=== PATIENT | female | born 1990 | race Caucasian/White ===

== ENCOUNTER 2016-02-10 10:04 | Observation (INO) | payer OTHER ==
--- NOTE | 2016-03-01 12:30 | GPROG ---
[f rep st] PROGRESS NOTE ADMISSION ORDER: I am no longer able to put it into the orders, so I am trying to just say that it w as okay for her to be admitted for an NST, and I believe it was 02/10/2016. /[id number]/MODL
== END 2016-02-10 11:00 | disposition home or self-care (01) ==
LOC: FLD 10:04
PROVIDERS: ADMIT Advanced Practice Midwife; ATTEND Advanced Practice Midwife
DX: O30.009 Twin pregnancy, unspecified number of placenta and unspecified number of amniotic sacs, unspecified trimester (principal); Z3A.00 Weeks of gestation of pregnancy not specified

== ENCOUNTER 2016-02-13 10:05 | Observation (INO) | payer OTHER | END 2016-02-13 11:58 | disposition home or self-care (01) | LOC: FLD 10:05 | PROVIDERS: ADMIT Obstetrics & Gynecology; ATTEND Obstetrics & Gynecology | DX: O30.003 Twin pregnancy, unspecified number of placenta and unspecified number of amniotic sacs, third trimester (principal); Z3A.00 Weeks of gestation of pregnancy not specified ==

== ENCOUNTER 2016-02-14 15:10 | Observation (INO) | payer OTHER ==
--- NOTE | 2016-02-14 15:24 | OBPROG ---
OBG Progress Note Assessment/Plan: Assessment: cat 1 fhr denies leaking bleeding and cramping reactive reassuring NST for A and B babies Plan:Discussed reasons to return before scheduled keep next appt at the office biweekly nsts 02/14/16 15:22 Subjective: Came in with complaint of frequent x 4 episodes of hiccups with baby B in a day. Fequent huber siddiqui contractions. Request for exam. No contractions on monitor. Deferred exam. FHR (bpm): 140 (135) ICD10 Worksheet Patient Problems: Problems Problem Status Diagnosed nst frequent hiccups Acute
== END 2016-02-14 15:30 | disposition home or self-care (01) ==
LOC: FLD 15:10
PROVIDERS: ADMIT Advanced Practice Midwife; ATTEND Advanced Practice Midwife
DX: O30.009 Twin pregnancy, unspecified number of placenta and unspecified number of amniotic sacs, unspecified trimester (principal); Z3A.00 Weeks of gestation of pregnancy not specified

== ENCOUNTER 2016-02-16 13:00 | Observation (INO) | payer OTHER ==
--- NOTE | 2016-02-16 20:30 | OBPROG ---
OBG Progress Note Assessment/Plan: Assessment: cat1 fhr reactive reassuring nst for twins Plan:discharge to home will return for c/s tuesday02/16/16 20:28 Subjective: Patient here for NST for twins Current Contraction Pattern: Irregular FHR Pattern Variability: Moderate FHR Category: 1 Membranes: Intact ICD10 Worksheet Patient Problems: Problems Problem Status Diagnosed twin nst Acute
== END 2016-02-16 14:10 | disposition home or self-care (01) ==
LOC: FLD 13:00
PROVIDERS: ADMIT Advanced Practice Midwife; ATTEND Advanced Practice Midwife
DX: O30.009 Twin pregnancy, unspecified number of placenta and unspecified number of amniotic sacs, unspecified trimester (principal); Z3A.00 Weeks of gestation of pregnancy not specified

== ENCOUNTER 2016-02-18 05:30 | Inpatient (IN) | payer OTHER ==
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
[2016-02-18] MEDS ORDERED: CITRIC ACID/SODIUM CITRATE 30 ML UDCUP PO ONE (06:12)
[2016-02-18] MEDS ORDERED: ceFAZolin 2 GM/DEXTROSE 100 ML IV ONE (06:12)
[2016-02-18] MEDS ORDERED: LR 500 ML IV ONE (06:12)
[2016-02-18] MEDS ORDERED: LR 1,000 ML IV SCH (06:30)
[2016-02-18 06:42] LABS: % IMMATURE GRANULYOCYTES 0.9 % (0.0-1.1); ABSOLUTE IMMATURE GRANULOCYTES 0.09 10^3/uL (0.00-0.10); ADD DIFF? NO; ADD MORPH? NO; ADD SCAN? NO; ATYPICAL LYMPHOCYTE FLAG 10 (0-99); FRAGMENT RBC FLAG 0 (0-99); HEMATOCRIT 34.6 % (38.0-47.0); HEMOGLOBIN 11.9 g/dL (12.6-16.3); LEFT SHIFT FLG 0 (0-99); LIPEMIA HEMOLYSIS FLAG 90 (0-99); MEAN CELL HEMOGLOBIN 30.7 pg (27.9-34.1); MEAN CELL HEMOGLOBIN CONCENTR. 34.4 g/dL (32.4-36.7); MEAN CELL VOLUME 89.2 fL (81.5-99.8); MEAN PLATELET VOLUME 10.8 fL (8.7-11.7); PLATELET CLUMPS FLAG 10 (0-99); PLATELET COUNT 175 10^3/uL (150-400); RED BLOOD CELL COUNT 3.88 10^6/uL (4.18-5.33); RED CELL DISTRIBUTION WIDTH 15.5 % (11.5-15.2)
[2016-02-18] MEDS ORDERED: AMMONIA AROMATIC 1 EACH AMP IH ONE (07:19)
[2016-02-18] MEDS ORDERED: TERBUTALINE SULFATE 1 MG/ML VIAL ONE (07:19)
[2016-02-18] MEDS ORDERED: MISOPROSTOL 200 MCG TAB ONE (07:19)
[2016-02-18] MEDS ORDERED: LIDOCAINE 1% 30 ML SDV ONE (07:20)
[2016-02-18] MEDS ORDERED: OXYTOCIN 10 UNIT/ML VIAL ONE (07:20)
[2016-02-18] MEDS ORDERED: METHYLERGONOVINE MAL 0.2 MG/ML INJ ONE (07:21)
[2016-02-18] MEDS ORDERED: morphINE *ANESTHESIA ONLY* 10 MG/ML VIAL ONE (07:25)
[2016-02-18] MEDS ORDERED: fentaNYL 100 MCG/2 ML INJ ONE (07:25)
[2016-02-18] MEDS ORDERED: morphINE PF 5 MG/10 ML INJ ONE (07:26)
[2016-02-18] MEDS ORDERED: PHENYLEPHRINE HCL 100 MCG/ML SYR ONE (07:55)
[2016-02-18] MEDS ORDERED: OXYTOCIN 100 UNITS/10 ML VIAL ONE (07:55)
[2016-02-18] MEDS ORDERED: epHEDrine SULFATE 10 MG/ML SYR ONE ×3 (07:55)
[2016-02-18] MEDS ORDERED: GLYCOPYRROLATE 0.2 MG/1 ML VIAL ONE ×4 (07:55)
[2016-02-18] MEDS ORDERED: NALOXONE HCL 0.4 MG/ML INJ ONE (08:39)
[2016-02-18] MEDS ORDERED: POLYETHYLENE GLYCOL 3350 17 GM PKT PO PRN (09:05)
[2016-02-18] MEDS ORDERED: PROMETHAZINE HCL 25 MG/ML VIAL IVP PRN (09:05)
[2016-02-18] MEDS ORDERED: MAGNESIUM HYDROXIDE 30 ML UDCUP PO PRN (09:05)
[2016-02-18] MEDS ORDERED: LACTULOSE 20 GM/30 ML UDCUP PO PRN (09:05)
[2016-02-18] MEDS ORDERED: BISACODYL 10 MG SUPP PR PRN (09:05)
--- NOTE | 2016-02-18 09:12 | OBPROC ---
- Delivery Pre-op Diagnoses: Twins, malpresentation Post-op Diagnoses: Twins, malpresentation Procedure: Primary, Low Transverse Surgeon: Fartun Mederos Manual Lathe Operator: Ale Chua Anesthesiologist: Daisy Gardner Feeder Switchboard Operator/LANDSCAPE CREW MEMBER: Alexandra Keenan Anesthesia: Spinal Complications: None Findings: Grossly normal appearing uterus, b/l tubes and ovaries. There was some oozing at the ANDREA that required [id number]-[id number] stitches of 0-vicryl x 2. Hemostasis achieved. Surgiseal was placed for further hemostasis. Specimen(s)/Path: Placenta IV Fluid (ml): 1,500 EBL: 800cc UO - 300 cc clear urine - Info A Delivery Date: 02/18/16 Delivery Time: 08:08 Sex of Infant: Male [place] Weight (gm): 2996 kg Score (1 Min): 8 Score (5 Min): 9 B Delivery Date: 02/18/16 Delivery Time: 08:11 Sex of : Female [place] Weight (gm): 3098 kg Score (1 Min): 8 Score (5 Min): 8
--- NOTE | 2016-02-18 11:01 | GOP ---
[f rep st] OPERATIVE REPORT DATE OF OPERATION: 02/18/2016 SURGEON: Fartun Mederos DO INTERN ARCHITECT: Ale Chua MD. ANESTHESIA: Spinal. PREOPERATIVE DIAGNOSIS: 1. Dichorionic diamnionic (Di-Di) twin intrauterine at 38 weeks. 2. Malpresentation. POSTOPERATIVE DIAGNOSIS: 1. Dichorionic diamnionic (Di-Di) twin intrauterine at 38 weeks. 2. Malpresentation. PROCEDURE PERFORMED: Primary Low Transverse Section FINDINGS: Grossly normal-appearing uterus, bilateral tubes and ovaries. There was some oozing noted on the lower uterine segment. Picjgi-pe-zkaju stitches of 0 Vicryl was used to achieve hemostasis, and Surgicel was placed for further hemostasis. SPECIMENS: None. ESTIMATED BLOOD LOSS: 800 cc. COMPLICATIONS: None. IV FLUIDS: 1500 cc LR. URINE OUTPUT: 300 cc of clear urine at end of procedure. INDICATIONS: The patient is a 25-year-old, 1, para 0, with di-di twin intrauterine at 38 weeks, confirmed by 1st ultrasound, who presents with twins both in transverse lie on ultrasound a week ago. DESCRIPTION OF PROCEDURE: The patient was taken to the operating room, where spinal anesthesia was obtained. The patient was prepped and draped in the usual sterile fashion, and placed in supine position with a tilt. A skin incision was then made with a knife and extended to the fascia with the Bovie. The fascia was then nicked and extended bilaterally with Ornelas scissors. Fascia was then dissected off the rectus muscles bluntly and in the midline. Peritoneum was elevated with hemostats and entered bluntly and extended bilaterally. The bladder blade was placed. The viscero-peritoneum was entered with the Metzenbaum scissors and bladder flap created using sharp and blunt dissection. Bladder blade was advanced. Uterus was then incised with a knife in a horizontal fashion in lower uterine segment and extended anterior and posteriorly. Baby A was delivered [place] breech. Buttocks delivered through the incision, then the remainder of the body and then the head. The cord was doubly clamped with straight hemostats and then ligated. The baby was then handed off to the nurse practitioner. It was a boy weighing 2996 gms, Apgars were 8 and 9. We then broke the 2nd amniotic sac of twin B and clear fluid was noted. Baby B was footling breech and was delivered without difficulty. The cord was then doubly clamped with curved hemostats, ligated, and the baby handed off to the nurse practitioner. It was a female weighing 3098 gms, Apgars were 8 and 8. Placenta was then delivered spontaneously intact. Uterus was exteriorized. Cavity cleansed with moist sponges. The uterine incision was then closed with a running stitch of 0 Vicryl. Hemostasis was noted, and then the 2nd imbricating layer was closed with 0 Vicryl. Again hemostasis was noted. The uterus was then replaced back into the abdomen. The gutters cleansed of free blood and clots. The incision was visualized and there was noted to be some bleeding in the lower uterine segment. At this time using 0 Vicryl, two kijfxe-of-nakki stitches were placed and hemostasis was achieved. Surgicel was then placed on the incision for further hemostasis. The rectus muscles were then approximated using 2-0 Vicryl. The fascia was then closed with 0 Vicryl running suture. Hemostasis was noted. The subcutaneous was closed with interrupted stitches of 2-0 Vicryl. The skin incision was then closed using a 4-0 Vicryl on a Corky needle. Patient tolerated the procedure well. There were no complications. Sponge, lap , and instrument counts were correct x2. The patient did receive 2 g of Ancef prior to the incision. The patient was then taken out of the supine position and taken to the recovery room in stable condition. /[id number]/MODL MTDD
[2016-02-18] MEDS: KETOROLAC 30 MG/1 ML SDV IVP PRN ×2 (11:21→18:17)
--- NOTE | 2016-02-18 17:55 | SOAPPROG ---
[id number] course breast feeding Plan: routine post operative and post care 02/18/16 17:54 Objective: Vital Signs Temp Pulse Resp BP Pulse Ox 37.1 C 102 H 16 106/52 L 93 02/18/16 13:45 02/18/16 15:45 02/18/16 15:45 02/18/16 13:45 02/18/16 15:45 Laboratory Results 02/18/16 06:38 02/17/16 02/18/16 02/19/16 05:59 05:59 05:59 Intake Total 1800 Output Total 1550 Balance 250 Physical Exam - Physical Exam General Appearance: WD/WN, alert, no apparent distress Respiratory: chest non-tender, lungs clear, normal breath sounds Cardiac/Chest: normal peripheral pulses, regular rate, rhythm Abdomen: normal bowel sounds, non-tender, soft, other (fundus firm and non tender) Skin: normal color, warm/dry, other (incision covered) Extremities: normal range of motion, non-tender, normal inspection, normal capillary refill Neuro/Psych: no motor/sensory deficits, alert, normal mood/affect, oriented x 3 ICD10 Worksheet Patient Problems: Problems Problem Status Diagnosed delivery delivered Acute malpresentation Acute Twins, both liveborn Acute
[2016-02-18] MEDS: SENNOSIDES/DOCUSATE SODIUM TAB PO SCH (20:20)
[2016-02-18] MEDS: HYDROCODONE/APAP 5/325 TAB PO PRN (20:21)
[2016-02-19] MEDS: KETOROLAC 30 MG/1 ML SDV IVP PRN ×2 (00:01→06:04)
[2016-02-19] MEDS: HYDROCODONE/APAP 5/325 TAB PO PRN ×6 (00:01→23:47)
[2016-02-19] MEDS: SENNOSIDES/DOCUSATE SODIUM TAB PO SCH ×2 (10:14→23:51)
[2016-02-19] MEDS: IBUPROFEN 600 MG TAB PO PRN ×3 (12:03→23:50)
[2016-02-19] MEDS: [UNRECOGNIZED DRUG - OTHER] PO SCH (12:03)
[2016-02-19] MEDS: CALCIUM 500 MG PO SCH (12:03)
[2016-02-19] MEDS: MAGNESIUM 250 MG PO SCH (12:04)
[2016-02-19] MEDS: [UNRECOGNIZED DRUG - OTHER] PO SCH (12:05)
[2016-02-19] MEDS: GENTLE IRON PO SCH (12:59)
[2016-02-19] MEDS: SIMETHICONE 80 MG TAB CHEW PO PRN (16:31)
[2016-02-19] MEDS: URSODIOL 300 MG CAP PO SCH ×2 (16:31→21:30)
--- NOTE | 2016-02-19 19:52 | SOAPPROG ---
[id number] course breast feeding anemia Plan: routine post operative and post care iron 02/19/16 19:49 Subjective: patient is doing well overall. tried abdominal binder but didnt like it. hurts with ambulation but working on increasing activity. pumping and working on breast feeding. not passing gas yet. had temp of 99.3. started using incentive spirometer. denies headache and changes in vision. normal lochia. voiding without difficulty. Objective: Vital Signs Temp Pulse Resp BP Pulse Ox 37.4 C 102 H 20 111/63 94 02/19/16 16:30 02/19/16 16:30 02/19/16 16:30 02/19/16 16:30 02/19/16 16:30 Laboratory Results 02/19/16 04:50 02/18/16 02/19/16 02/20/16 05:59 05:59 05:59 Intake Total 2800 Output Total 3250 2250 Balance -450 -2250 Physical Exam - Physical Exam General Appearance: WD/WN, alert, no apparent distress Respiratory: chest non-tender, lungs clear, normal breath sounds Cardiac/Chest: normal peripheral pulses, regular rate, rhythm Abdomen: normal bowel sounds, non-tender, soft Skin: normal color, warm/dry Extremities: normal range of motion, non-tender, normal inspection, normal capillary refill Neuro/Psych: no motor/sensory deficits, alert, normal mood/affect, oriented x 3 ICD10 Worksheet Patient Problems: Problems Problem Status Diagnosed delivery delivered Acute malpresentation Acute Twins, both liveborn Acute
[2016-02-19] MEDS: IRON POLYSAC/IRON HEME 28 MG TAB PO SCH (23:52)
[2016-02-20] MEDS: HYDROCODONE/APAP 5/325 TAB PO PRN ×6 (03:59→22:13)
[2016-02-20] MEDS: LEVOTHYROXINE 50 MCG TAB PO SCH (05:22)
[2016-02-20] MEDS: IBUPROFEN 600 MG TAB PO PRN ×3 (05:22→20:24)
[2016-02-20] MEDS ORDERED: LEVOTHYROXINE 50 MCG TAB PO SCH (06:00)
--- NOTE | 2016-02-20 07:47 | OBPROG ---
OBG Progress Note Assessment/Plan: Assessment: 1) s/p primary LTCS POD # 2 - pt is stable 2) Anemia - pt is asymptomatic 3) Anali's - on meds Plan: Continue routine post-op care Encourage cont ambulation and IS Will start iron BID Plan for d/c home in 24-48 hrs 02/20/16 07:44 Subjective: Pt seen and examined. Feeling better than yesterday, pain is well controlled with ATC meds. Pt is OOB, oliva regular diet, voiding without difficulty and passing flatus. No BM. Both BF and pumping-going well. Denies any f/c/n/v/CP or SOB. No calf tenderness. Denies any dizziness. Objective: 02/19/16 04:50 Patient ABO/Rh A POSITIVE 02/18/16 06:38 Temp Pulse Resp BP Pulse Ox 36.4 C 90 17 105/64 95 02/20/16 02:12 02/20/16 02:12 02/20/16 02:12 02/20/16 02:12 02/20/16 02:12 Uterine Position/Fundal Height: Umbilicus -2 Uterine Tone: Firm - Physical Exam General Appearance: WD/WN, alert, no apparent distress Respiratory: lungs clear, normal breath sounds Cardiac/Chest: regular rate, rhythm Abdomen: normal bowel sounds, soft, flatus (+), incision (C/D/I), other ( appropriate tenderness) Genitourinary: lochia (minimal) Extremities: swelling Neuro/Psych: alert, normal mood/affect, oriented x 3 ICD10 Worksheet Patient Problems: Problems Problem Status Diagnosed delivery delivered Acute malpresentation Acute Twins, both liveborn Acute - ICD10 Problem Qualifiers (1) Twins, both liveborn (2) malpresentation
[2016-02-20] MEDS: IRON POLYSAC/IRON HEME 28 MG TAB PO SCH ×2 (08:02→20:23)
[2016-02-20] MEDS: SENNOSIDES/DOCUSATE SODIUM TAB PO SCH ×2 (08:03→20:24)
[2016-02-20] MEDS: [UNRECOGNIZED DRUG - OTHER] PO SCH (08:03)
[2016-02-20] MEDS: CALCIUM 500 MG PO SCH (08:03)
[2016-02-20] MEDS: URSODIOL 300 MG CAP PO SCH ×3 (08:04→22:12)
[2016-02-20] MEDS: MAGNESIUM 250 MG PO SCH (08:05)
[2016-02-20] MEDS: [UNRECOGNIZED DRUG - OTHER] PO SCH (08:05)
[2016-02-20] MEDS: FERROUS SULFATE 325 MG TAB PO SCH ×2 (11:01→20:23)
[2016-02-20] MEDS: GENTLE IRON PO SCH (11:05)
[2016-02-20 12:01] VITALS: RESP 18
[2016-02-20] MEDS: SIMETHICONE 80 MG TAB CHEW PO PRN (15:47)
[2016-02-21] MEDS: HYDROCODONE/APAP 5/325 TAB PO PRN ×2 (02:26→06:22)
[2016-02-21] MEDS: IBUPROFEN 600 MG TAB PO PRN ×4 (02:28→20:32)
[2016-02-21] MEDS: LEVOTHYROXINE 50 MCG TAB PO SCH (06:22)
--- NOTE | 2016-02-21 08:21 | OBPROG ---
OBG Progress Note Assessment/Plan: Assessment: 1) s/p primary LTCS POD # 3 - pt is stable 2) Anemia - pt is asymptomatic 3) Anali's - on meds Plan: Continue routine post-op care Will switch from Shelley to Percocet Encourage cont ambulation and IS Plan for d/c home in am 02/2102/21/16 08:18 Subjective: Pt seen and examined. She is uncomfortable and has numbness/tingling from knee below and shoulders, ?Shelley side effects. Otherwise pain is well controlled. Minimal lochia. Pt is OOB, oliva diet, voiding and BM x 1. Denies any f/c/n/v/CP or SOB. Having some difficulty with BF and pumping. Wants to go home in am 02/21. Objective: 02/19/16 04:50 Patient ABO/Rh A POSITIVE 02/18/16 06:38 Temp Pulse Resp BP Pulse Ox 36.1 C 84 18 106/69 94 02/20/16 19:40 02/20/16 19:40 02/20/16 08:00 02/20/16 19:40 02/20/16 19:40 Uterine Position/Fundal Height: Umbilicus -2 Uterine Tone: Firm - Physical Exam General Appearance: WD/WN, alert, no apparent distress Respiratory: lungs clear, normal breath sounds Cardiac/Chest: regular rate, rhythm Abdomen: normal bowel sounds, non-tender, soft, incision (C/D/I), other (BM x 1) Genitourinary: lochia (minimal) Extremities: swelling Neuro/Psych: alert, normal mood/affect, oriented x 3 ICD10 Worksheet Patient Problems: Problems Problem Status Diagnosed delivery delivered Acute malpresentation Acute Twins, both liveborn Acute - ICD10 Problem Qualifiers (1) Twins, both liveborn (2) malpresentation
[2016-02-21] MEDS: FERROUS SULFATE 325 MG TAB PO SCH ×2 (08:44→20:32)
[2016-02-21] MEDS: SENNOSIDES/DOCUSATE SODIUM TAB PO SCH ×2 (08:44→20:32)
[2016-02-21] MEDS: [UNRECOGNIZED DRUG - OTHER] PO SCH (09:04)
[2016-02-21] MEDS: CALCIUM 500 MG PO SCH (09:04)
[2016-02-21] MEDS: [UNRECOGNIZED DRUG - OTHER] PO SCH (09:05)
[2016-02-21] MEDS: MAGNESIUM 250 MG PO SCH (09:05)
[2016-02-21] MEDS: GENTLE IRON PO SCH (09:05)
[2016-02-21] MEDS: OXYCODONE/APAP 5/325 TAB PO PRN ×4 (10:22→23:00)
[2016-02-21 16:40] VITALS: O2SAT 96
[2016-02-22] MEDS: IBUPROFEN 600 MG TAB PO PRN ×2 (02:58→08:33)
[2016-02-22] MEDS: OXYCODONE/APAP 5/325 TAB PO PRN ×3 (02:58→13:03)
[2016-02-22] MEDS: LEVOTHYROXINE 50 MCG TAB PO SCH (05:56)
[2016-02-22] MEDS: SENNOSIDES/DOCUSATE SODIUM TAB PO SCH (08:33)
[2016-02-22] MEDS: [UNRECOGNIZED DRUG - OTHER] PO SCH (08:34)
[2016-02-22] MEDS: [UNRECOGNIZED DRUG - OTHER] PO SCH (08:34)
[2016-02-22] MEDS: MAGNESIUM 250 MG PO SCH (08:34)
[2016-02-22] MEDS: CALCIUM 500 MG PO SCH (08:34)
[2016-02-22] MEDS: FERROUS SULFATE 325 MG TAB PO SCH (08:34)
[2016-02-22] MEDS: GENTLE IRON PO SCH (10:09)
[2016-02-22 10:18] VITALS: BP 116/75; PULSE 81; TEMP 97.5
--- NOTE | 2016-02-22 10:48 | OBPROG ---
OBG Progress Note Assessment/Plan: Assessment: 1) s/p primary LTCS POD # 4 - pt is stable 2) Anemia - pt is asymptomatic 3) Anali's - on meds Plan: Continue routine post-op care Plan for d/c home today Rx given for Percocet, Motrin and Levo Cont PNV, iron and colace Pelvic rest RTC in 2 weeks for incision check 02/22/16 10:45 Subjective: Pt seen and examined. Doing well, no complaints. Pain is well controlled, better with Percocet. Pt is OOB, oliva reg diet, voiding and BM x 2. Denies any f/ c/n/v/CP or SOB. much better. Wants to go home. Objective: 02/19/16 04:50 Patient ABO/Rh A POSITIVE 02/18/16 06:38 Temp Pulse Resp BP Pulse Ox 36.4 C 81 18 116/75 96 02/22/16 08:30 02/22/16 08:30 02/22/16 08:30 02/22/16 08:30 02/22/16 08:30 Uterine Position/Fundal Height: Umbilicus -2 Uterine Tone: Firm - Physical Exam General Appearance: WD/WN, alert, no apparent distress Respiratory: lungs clear, normal breath sounds Cardiac/Chest: regular rate, rhythm Abdomen: normal bowel sounds, non-tender, soft, incision (C/D/I) Genitourinary: lochia (minimal) Extremities: swelling Neuro/Psych: alert, normal mood/affect, oriented x 3 ICD10 Worksheet Patient Problems: Problems Problem Status Diagnosed delivery delivered Acute malpresentation Acute Twins, both liveborn Acute - ICD10 Problem Qualifiers (1) Twins, both liveborn (2) malpresentation
== END 2016-02-22 13:30 | disposition home or self-care (01) | DRG 765 ==
LOC: FLD 05:30 → FOB 10:51
PROVIDERS: ADMIT Obstetrics & Gynecology; ATTEND Obstetrics & Gynecology
PROC: 10D00Z1 Extraction of Products of Conception, Low, Open Approach (ICD-10-PCS; principal; 2016-02-18)
DX: O32.2XX1 Maternal care for transverse and oblique lie, fetus 1 (principal); O32.2XX2 Maternal care for transverse and oblique lie, fetus 2; O30.043 Twin pregnancy, dichorionic/diamniotic, third trimester; O99.824 Streptococcus B carrier state complicating childbirth; O99.02 Anemia complicating childbirth; O99.284 Endocrine, nutritional and metabolic diseases complicating childbirth; E06.3 Autoimmune thyroiditis; Z3A.38 38 weeks gestation of pregnancy; Z37.2 Twins, both liveborn
CPT/HCPCS: J0690; J1885; J2210; J2274; J2310; J2370; J2590; J3010; J3105

== ENCOUNTER 2016-03-16 14:53 | Emergency (ER) | payer OTHER ==
[2016-03-16 15:03] VITALS: RESP 16
[2016-03-16] MEDS ORDERED: LORazepam 2 MG/ML INJ IVP ONE (15:03)
[2016-03-16] MEDS ORDERED: fentaNYL 100 MCG/2 ML INJ IVP ONE (15:03)
[2016-03-16] MEDS ORDERED: LORazepam 2 MG/ML INJ ONE (15:04)
[2016-03-16] MEDS ORDERED: fentaNYL 100 MCG/2 ML INJ ONE (15:05)
--- NOTE | 2016-03-16 15:11 | UCPHY ---
H & P Patient Type: Established Chief Complaint Nursing Narrative: CC sob cannot breathe. MOC speaking for pt. Csec last month for twins. Feb 17 Time Seen by Provider: 03/16/16 14:58 HPI/ROS: Complaint: Shortness of breath HPI: 25-year-old woman who is 1 month from a twin , status post . Patient has been in normal state of health. She was pumping breast milk this afternoon when she had the onset of the sensation of shortness of breath. She is also having some discomfort in her upper abdomen. She does not have a history of the same. No fevers or chills. No cough. Has not been around anybody who has been sick. Denies any recent immobility. No calf pain or tenderness. Does not have a family history of blood clots. Pain in her abdomen is constant. States it is not worsened with deep inspiration. ROS: 10 point Review of Systems is negative except as noted in the HPI. Physical exam: Gen: Awake, Alert, anxious appearing, heart rate is 81, respiratory rate is 16, oxygen saturation is 99% on room air HEENT: Nose: no rhinorrhea Eyes: PERRLA, EOMI Mouth: Moist mucosa Neck: Supple, no JVD Chest: nontender, lungs clear to auscultation Heart: S1, S2 normal, no murmur Abd: Soft, she has tenderness no right upper quadrant reproducing her presenting abdominal complaint, positive Chen sign Back: no CVA tenderness, no midline tenderness Ext: no edema, non-tender Skin: no rash Neuro: CN II-XII intact, Sensation grossly intact, Strength 5/5 in bilateral upper and lower extremities - Personal History LMP (Females 10-55): Unknown Current Tetanus Diphtheria and Acellular Pertussis (TDAP): Yes Tetanus Vaccine Date: 2013 - Medical/Surgical History Hx Asthma: No Hx Chronic Respiratory Disease: No Hx Diabetes: No Hx Cardiac Disease: No Hx Renal Disease: No Hx Cirrhosis: No Hx Alcoholism: No Hx HIV/AIDS: No Hx Splenectomy or Spleen Trauma: No Other PMH: Hasimoto's Dx. PSH-RIGHT SHOULDER SURGERY, TONSILS AND ADNOIDS,. csec - Family History Significant Family History: No pertinent family hx - Social History Smoking Status: Never smoked Constitutional: Initial Vital Signs Temperature (C) 36.6 C 03/16/16 14:53 Heart Rate 81 03/16/16 14:53 Respiratory Rate 16 03/16/16 14:53 Blood Pressure 139/68 H 03/16/16 14:53 O2 Sat (%) 99 03/16/16 14:53 O2 Delivery Mode Room Air Allergies/Adverse Reactions: No Known Allergies Allergy (Verified 03/16/16 15:03) Home Medications: Medication Instructions Recorded Vitamins 1 tab PO DAILY 08/15/15 IRON 1 tab PO BID 01/20/16 Ca Carb/Magnesium/Caps/Kristen 2 tab PO DAILY 01/23/16 Ibuprofen [Motrin (*)] 600 mg PO Q6HRS PRN #30 tab 02/22/16 Levothyroxine [Synthroid 50 mcg 50 mcg PO DAILY06 #30 tab 02/22/16 (*)] oxyCODONE/APAP 5/325 [Percocet 1 - 2 tab PO Q4HRS PRN #30 tab 02/22/16 5/325 (*)] Medical Decision Making - Diagnostics Imaging: Chest x-ray: Negative per Dr. Patton Right upper quadrant ultrasound: Hepatomegaly otherwise negative per Dr. Patton. ED Course/Re-evaluation: Patient's CBC and chemistry are largely unremarkable. There is a very slight elevation in her sodium and her alk-phos. Remainder of her LFTs are normal. She is feeling significantly improved after 25 mcg of fentanyl and 1 mg of Ativan. Her oxygen saturations remained high in room air. Repeat examination she has a soft benign abdomen. Lungs are clear to auscultation. She has never been tachycardic. She has never been tachypneic. I had a long discussion with her of that I cannot exclude given the abrupt onset of her shortness of breath possibility of a blood clot however she does not have any significant right fat risk factors for this at this time. She is not tachypneic she is not tachycardic she is not hypoxemic. Symptoms have completely resolved. She has not had any pleuritic chest pain. Patient will be discharged with instructions to return for any worsening, otherwise follow up with the primary care physician in 2-3 days for re-evaluation. - Data Points Laboratory Results: Laboratory Results 03/16/16 15:06 03/16/16 15:06 Medications Given: Discontinued Medications Fentanyl (Sublimaze) 25 mcg IVP EDNOW ONE Stop: 02/07/17 15:04 Last Admin: 03/16/16 15:21 Dose: 25 mcg Lorazepam (Ativan Injection) 1 mg IVP EDNOW ONE Stop: 03/16/16 15:04 Last Admin: 03/16/16 15:22 Dose: 1 mg Departure - Departure Disposition: Home, Routine, Self-Care Clinical Impression: Dyspnea, Abdominal pain Condition: Good Instructions: Dyspnea (ED), Abdominal Pain (ED) Additional Instructions: Follow up with the primary care physician in 2-3 days for re-evaluation. He may take ibuprofen and acetaminophen for any aches or pains. If symptoms return and are not relieved with medications glue directly to the nearest emergency department for further evaluation. Referrals: [place] STATE,. [Primary Care Provider] - As per Instructions - PQRS PQRS Measurement: NA
[2016-03-16 15:16] LABS: % IMMATURE GRANULYOCYTES 0.6 % (0.0-1.1); ABSOLUTE IMMATURE GRANULOCYTES 0.04 10^3/uL (0.00-0.10); ADD DIFF? NO; ADD MORPH? NO; ADD SCAN? NO; ATYPICAL LYMPHOCYTE FLAG 40 (0-99); FRAGMENT RBC FLAG 0 (0-99); HEMATOCRIT 42.8 % (38.0-47.0); LEFT SHIFT FLG 0 (0-99); LIPEMIA HEMOLYSIS FLAG 80 (0-99); MEAN CELL HEMOGLOBIN 29.1 pg (27.9-34.1); MEAN CELL HEMOGLOBIN CONCENTR. 32.7 g/dL (32.4-36.7); MEAN PLATELET VOLUME 9.8 fL (8.7-11.7); PLATELET CLUMPS FLAG 10 (0-99); PLATELET COUNT 216 10^3/uL (150-400); RED BLOOD CELL COUNT 4.81 10^6/uL (4.18-5.33); RED CELL DISTRIBUTION WIDTH 13.3 % (11.5-15.2)
[2016-03-16 15:32] LABS: ALANINE AMINOTRANSFERASE 35 IU/L (9-52); ALBUMIN 4.4 g/dL (3.5-5.0); ALKALINE PHOSPHATASE 141 IU/L (38-126); ANION GAP 14 mEq/L (8-16); ASPARTATE AMINOTRANSFERASE 39 IU/L (14-46); BILIRUBIN,TOTAL 0.6 mg/dL (0.1-1.4); BILIRUBIN-CONJUGATED 0.4 mg/dL (0.0-0.5); BILIRUBIN-UNCONJUGATED 0.2 mg/dL (0.0-1.1); CALCIUM 9.9 mg/dL (8.5-10.4); CARBON DIOXIDE 27 mEq/l (22-31); CHLORIDE 104 mEq/L (97-110); CREATININE 0.8 mg/dL (0.6-1.0); GLOMERULAR FILTRATION RATE > 60; GLUCOSE 85 mg/dL (70-100); POTASSIUM 3.7 mEq/L (3.5-5.2); SODIUM 145 mEq/L (134-144); TOTAL PROTEIN 7.7 g/dL (6.3-8.2)
--- NOTE | 2016-03-16 15:54 | DX ---
Chest, PA and Lateral History: Dyspnea Findings: Density from the patient's breasts and prominent dorsal subcutaneous tissues overlie each l ower lung. Lungs are clear, without infiltrate or consolidation. Heart size is normal. There is no ad enopathy or mass lesion. There is no pleural effusion or pneumothorax. Bones are unremarkable for age . Impression: Normal.
--- NOTE | 2016-03-16 15:59 | US ---
Right Upper Quadrant Abdominal Sonogram History: Possible gallstones, RUQ pain Findings: The gallbladder is distended, without gallstones, gallbladder wall thickening or pericholec ystic fluid. The liver is enlarged measuring between 23 and 24 cm in length. There is no intra or ext rahepatic biliary dilatation. There is no hepatic mass or evidence for metastatic disease. The anteri or liver capsule is smooth. The right kidney, pancreas, and common duct are normal. There is no ascit es. The visualized IVC is normal. There is mild dilatation of the infrarenal abdominal aorta. Impression: 1. [place] hepatomegaly. Correlation with liver function and hepatitis testing is recommend ed. 2. Normal gallbladder. Results discussed with Dr. Rabago at 3:55 p.m.
[2016-03-16 17:32] VITALS: BP 122/73; PULSE 76; TEMP 98.1; O2SAT 97
[2016-03-17] MEDS ORDERED: IOPAMIDOL (ISOVUE 370) 100 ML BTL IV ONE (16:21)
== END 2016-03-16 17:15 | disposition home or self-care (01) ==
LOC: CED 14:53
DX: O90.89 Other complications of the puerperium, not elsewhere classified (principal); R06.00 Dyspnea, unspecified; R10.9 Unspecified abdominal pain
CPT/HCPCS: 71020-PO; 76705-PO; 80048-PO; 80076-PO; 83690-PO; 85025-PO; 96361-PO; 96374-PO; 96375-PO; G0463-PO; J3010; Q9967

== ENCOUNTER → 2016-03-17 | Outpatient (CLI) | payer OTHER ==
--- NOTE | 2016-03-17 17:53 | CT ---
CT Pulmonary Angiogram History: Shortness of breath, recent . Technique: Axial contrast-enhanced images were obtained through the chest following the uneventful i ntravenous administration of 90 mL Isovue-370. Creatinine is 0.8. Multiplanar reformations were per formed through the pulmonary arteries. Dose reduction techniques were utilized. Comparison: PA and lateral chest March 16, 2016, CT angiogram chest April 22, 2013. Findings: Visualization of peripheral segmental and subsegmental vessels is slightly limited by resp iratory motion. There is no visible pulmonary embolus. There is minimal central peribronchial thick ening. Tiny pleural effusions are present. Heart size is normal. There is trace pericardial fluid. The aorta is normal caliber, without dissection. No pathologically enlarged lymph nodes are identi fied. The bones are normal. Visualized structures in the upper abdomen are normal. Impression: 1. No visible pulmonary embolus. 2. Mild peribronchial thickening that could be related to bronchitis or mild fluid overload. 3. Trace effusions. 4. Additional findings as above. Findings discussed with Krupa Ramirez M.D., on March 17, 2016 at 1731 hours.
== END ==
LOC: FLAB 15:41
PROVIDERS: ATTEND Obstetrics & Gynecology
DX: R06.02 Shortness of breath (principal); Z98.891 History of uterine scar from previous surgery

== ENCOUNTER → 2016-04-02 | Outpatient (CLI) | payer OTHER | LOC: FIMAGING 08:24 | PROVIDERS: ATTEND Surgery | DX: R10.11 Right upper quadrant pain (principal) | CPT/HCPCS: 78227; A9537 ==